=== PATIENT | male | born 1965 | race Caucasian/White ===

== ENCOUNTER 2024-05-21 10:20 | Emergency (ER) | payer OTHER, SELFPAY ==
[2024-05-21 10:23] VITALS: BP 127/80; PULSE 99; RESP 18; TEMP 36.6; O2SAT 99; BMI 31.3
--- NOTE | 2024-05-21 10:41 | ED.EYEPROB ---
HPI - Eye Problem General Chief complaint: Eye Problems Stated complaint: Right eye flashes of light Time Seen by Provider: 05/21/24 10:36 History of Present Illness HPI Narrative: Patient is a 59-year-old healthy gentleman who takes no medication but has history of ocular migraines who presents with 3 days of flashes of light in the right eye. In addition the flashes of light he has persistence of a streak in his vision on the right. He has not had any eye injuries. He has had no changes visual acuity. He has had no headaches no change in his ocular movements no other related symptoms he has had no similar symptoms previously. No problems in the left eye. Due to the duration of his symptoms and worsening over the last day comes emergency room for further evaluation. Related Data Home Medications ?Medication ?Instructions ?Recorded ?Confirmed No Known Home Medications 05/21/24 05/21/24 Allergies Allergy/AdvReac Type Severity Reaction Status Date / Time No Known Drug Allergies Allergy Verified 05/21/24 10:28 Review of Systems Status of ROS: Reports: 10 or more systems reviewed and unremarkable except as noted in History and below Exam Narrative: Exam Narrative: EXAM GENERAL: Patient appears comfortable and well. EYES: No scleral icterus. LYMPH: No supraclavicular or cervical lymphadenopathy. SKIN: Visible skin seen during exam normal or with benign process only. EXT: No dependent lower extremity pedal edema. HEART: Regular rate and rhythm with no murmurs, rubs, or gallops. LUNGS: Clear to auscultation bilaterally with no crackles or wheezes. ABD: Soft, non tender, non distended. PSYCH: Good eye contact, speech is not pressured. Const: Vital Signs, click to edit/add: Vital Signs - 24 hr 05/21/24 10:23 Temperature 97.8 F Pulse Rate [Pulse Oximeter] 99 Respiratory Rate 18 Blood Pressure [Ri ght Upper Arm] 127/80 Pulse Oximetry 99 Oxygen Delivery Me thod Room Air Course Vital Signs Vital signs: Initial Vital Signs Temperature 97.8 F 05/21/24 10:23 Temperature Source Temporal Artery Scan 05/21/24 10:23 Pulse Rate 99 05/21/24 10:23 Respiratory Rate 18 05/21/24 10:23 Blood Pressure 127/80 05/21/24 10:23 Blood Pressure Mean 95 05/21/24 10:23 Blood Pressure Position Sitting 05/21/24 10:23 Pulse Oximetry 99 05/21/24 10:23 Oxygen Delivery Method Room Air 05/21/24 10:23 Vital Signs Temperature 97.8 F 05/21/24 10:23 Pulse Rate 99 05/21/24 10:23 Respiratory Rate 18 05/21/24 10:23 Blood Pressure 127/80 05/21/24 10:23 Pulse Oximetry 99 05/21/24 10:23 Oxygen Delivery Method Room Air 05/21/24 10:23 Temperature 97.8 F 05/21/24 10:23 Pulse Rate 99 05/21/24 10:23 Respiratory Rate 18 05/21/24 10:23 Blood Pressure 127/80 05/21/24 10:23 Pulse Oximetry 99 05/21/24 10:23 Oxygen Delivery Method Room Air 05/21/24 10:23 MDM - Eye Problem MDM Narrative Medical decision making narrative: Patient seen and examined. I did speak with the [facility]. I do think that this be better case for them as a more quit meant and more experience with ocular issues. I am able to say that the patient is in good medical condition and I do not believe he needs any imaging. Did call over again and talk to the folks at [facility] and they are expecting him presently. Discharge Plan Discharge Clinical Impression: Alteration in vision Patient Disposition: Home, Self-Care Condition: Stable Additional Instructions: Proceed to [facility] in [place] for further evaluation. Activity Level: No Restrictions Discharge Diet: Regular Prescriptions: No Action No Known Home Medications Stand Alone Forms: [employer] Info Instructions
--- OUTSIDE RECORDS SUMMARY | 2024-05-21 10:54 | XMS_ITS | Clinical Summary ---
Author Organization [facility] Address [address] [place] [address] Care Team Providers Care Piano Refinisher Name Role Phone Unavailable Primary Care Provider Unavailabl e Source Comments Patient records contain information from all sites at [facility]. For routine questions regarding patient records, call [phone] during business hours, M-F 8:00 AM - 5:00 PM Central Time. Record requests for emergency care only can be directed to [phone] at any time.[facility] Allergies Active Allergy Reactions Criticality Noted Date Comments Clams Anaphylaxis Low 05/10/2019 Pollen Extracts Other (see comments) Low 05/10/2019 hayfever Medications No known medications Encounters Date Type Department Care Team Description 05/20/2024 Nurse Triage Department of Family Medicine, [facility], in [place], [place] [address] [place] [phone] Nivia Pickard R.N. Eye Problem from Last 3 Months Family History Medical History Relation Name Comments Cataracts Father Relation Name Status Comments Father Social History Tobacco Use Types Packs/Day Years Used Date Smoking Tobacco: Never Nutrition Answer Date Recorded Nutrition: EVOO Fat Source Unknown 05/29 Nutrition: Servings of Fruits/Vegetables per Day Not on file 05/29/2020 Dental Answer Date Recorded Dental: Regular Dentist Unknown 05/30/19 Sex and Gender Information Value Date Recorded Sex Assigned at Not on file Legal Sex Male 10:26 AM [employer] Gender Identity Not on file Sexual Orientation Not on file Last Filed Vital Signs Vital Sign Reading Time Taken Comments Blood Pressure 143/92 09/20/2015 4:34 PM CDT Pulse 97 09/20/2015 4:34 PM CDT Temperature - - Respiratory Rate 16 09/20/2015 4:28 PM CDT Oxygen Saturation - - Inhaled Oxygen Concentration - - Weight - - Height - - Body Mass Index - - Plan of Treatment Health Maintenance Due Date Last Done Comments CT Colonography 1963 Cologuard 1963 Colonoscopy 1963 Colorectal Cancer Screening 1963 FIT 1963 HIV Screening 1963 Hepatitis C Screening 1963 Pneumococcal vaccine (50+ years) (1 of 1 - PCV) 2013 Zoster Vaccines (1 of 2) 2013 RSV vaccine - (32-3 6 weeks) or 60+ years (1 - Risk 60-74 years 1-dose series) 2023 COVID-19 Vaccine (1 - 2023-2 5 season) 2023 Influenza Vaccine (#1) 2023 Depression Screening (Annual PHQ-2) 03/31/2024 Fasting Glucose for Diabetes Screening 05/26/2026 05/26/2023, 03/23/2023, 04/19/2022 Lipid (Cholesterol) Screening 04/19/2027 04/19/2022 DTaP,Tdap,and Td Vaccines (2 - Td or Tdap) 04/19/2032 04/19/2022 IPV Vaccines Aged Out No longer eligi ble based on patient's age to complete this topic Insurance [facility] [place] [address] [place] [id number]
--- OUTSIDE RECORDS SUMMARY | 2024-05-21 10:54 | XMS_ITS | Encounter Summary ---
Author Name [facility] [place] Organization [facility] [place] Address [address] [place] [id number] Support Name Relationship Address Phone PALMER GARNICAHA Next of Kin Unknown PALMER GARNICAHA Emergency Contact Unknown Insurance Providers: All historical and current Section Date Range: From patient's date of to the date document was created. This section includes the names of all active insurance providers for the patient. Insurance Provider Type of Coverage Plan Name Start of Policy Coverage End of Policy Coverage Group Number Member ID Insurance Provider's Telephone Number Policy Pritchett's Name Patient's Relationship to Policy Pritchett [place] PREFERRED PROVIDER ORGANIZAT ION (PPO) UMAIR [facility] Jun 30, 2015 [id number] [phone] LUCHO BARBER PATIENT [place] PREFERRED PROVIDER ORGANIZAT ION (PPO) [employer] Jun 30, 2015 [id number] [phone] LUCHO BARBER PATIENT [employer] PRESCRIPT ION RX PLAN Jun 30, 2015 [facility] [id number] LUCHO BARBER PATIENT Selected Encounter This section includes the information on record at [place] for the Encounter. Date/Time Encounter Type Encounter Description Reason Provider Source 2024 10:00 AM SELF CARE MNGMENT TRAINING PHYSICAL THERAPY ICD-10-CM M54.59 Other low back pain MICAELA MALLOY Encounter Template Text not used by [facility] Assessments - Encounter Diagnoses This section includes the primary and secondary diagnoses documented for the Encounter. Date/Time Primary/Secondary Diagnosis Diagnosis Name Provider Source May 18, 2024 09:43 AM PRIMARY Other low back pain MICAELA MALLOY [facility] May 18, 2024 09:43 AM SECONDARY Pain in left hip MICAELA MALLOY [facility] Encounter Notes: All associated encounter notes This section contains the clinical notes associated to the Encounter. Date/Time Encounter Note(s) Provider Source May 07, 2024 01:53 PM ADDENDUM: LOCAL TITLE: Addendum STANDARD TITLE: ADDENDUM DATE OF NOTE: MAY 07, 2024@13:53:45 ENTRY DATE: MAY 07, 2024@13:53:46 AUTHOR: TINY SUAREZ EXP COSIGNER: URGENCY: STATUS: COMPLETED PT eval and Neurosurgery notes reviewed. Patient comments to PT that his back pain is worse with driving, and therefore he feels he needs care in the community. Neurosurgery note comments he has noted when he is sitting in his car driving there is some numbness in the right lateral aspect of his call into the right foot. When he gets out of the car and he is standing this seems to dissipate. Neurosurgery also notes patient has declined a pain service consult and has declined neurology consult as he feels his symptoms are not severe. Patient is not drive time eligible for [facility] PT services. Due to above conflicting comments about patient's symptoms, would recommend trialing a few [facility] PT visits. Patient may also consider a hybrid model of [facility] and [facility] PT services. If therapist identifies that patient's low back pain symptoms are affecting his ability to participate in PT, then could consider Community [facility] PT. /rehan/ TINY SUAREZ DPT, FANNIE PHYSICAL THERAPIST Signed: 05/07/2024 14:08 Receipt Acknowledged By: 05/10/2024 13:09 /rehan/ Micaela Malloy DPT Doctor of Physical Therapy --- Original Document --- 05/06/24 PT-EVALUATION NOTE: PT tx: Moderate complexity evaluation 25 minutes, self-care 15 minutes PT dx: Chronic low back pain, left hip pain Evaluation Date: May # of VISITS: 1 # of CX/NS: 0 Informed verbal consent received for physical therapy evaluation and treatment. Relevant PMH/personal factors impacting rehab: Low back pain, 4th nerve palsy, bilateral lower extremity edema SUBJECTIVE: Chief Concern: Pt is a 59yo MALE presenting to PT for chronic lower back pain he has had most of my life. Denies any recent trauma. Describes stumbling at times due to his L leg. Vet strongly feels he should get community care as he states driving irritates his pain. He is 46-[address] time from nearest [facility] that offers PT. He reports I was told I had to see you before I get community care. He also reports an unwillingness to participate in [place] physical therapy unless its provided to him closer to his home. 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 He does not do any other physical activity as a result. Sleep: Difficult due to pain Red Flags: No personal history of cancer. Denies any UE or LE progressive weakness, unexplained weight loss, loss of bowel/bladder control, saddle anesthesia, acute gait changes, pain with rest, fevers, chills, infections. Patient's Goal: - strengthen my back RELEVANT IMAGING: Lumbar MRI 10/12/2023 (Per [facility], see report for full details) FINDINGS: Mild leftward lumbar curvature. The lumbar lordosis is preserved. No acute fracture. No T1 hypointense lesions. Normal conus terminates at L1-2. T12-L1: Mild disc degeneration. No spinal canal or neural foraminal narrowing. L1-2: Mild disc degeneration. No spinal canal or neural foraminal narrowing. L2-3: Worsening mild to moderate disc height loss. Posterior disc bulge. Mild facet arthropathy. No spinal canal or neural foraminal narrowing. L3-4: Worsening moderate disc height loss. Posterior disc bulge. Moderate right and mild left facet arthropathy. No spinal canal narrowing. Mild right without left neural from narrowing. L4-5: Mild retrolisthesis. Worsening advanced disc height loss. Type 2 degenerative signal changes. Posterior disc bulging and endplate spondylotic ridging. Moderate facet arthropathy. Mild spinal canal narrowing. Mild bilateral neural foraminal narrowing. L5-S1: Advanced disc degeneration and disc height loss. Mild to moderate vertebral body edema. Posterior disc bulging and endplate spondylotic ridging. Moderate facet arthropathy. No spinal canal narrowing. Moderately severe left without right neural foraminal narrowing. IMPRESSION 1. Multilevel lumbar spondylosis has progressed compared to the prior MRI. No spinal canal stenosis. 2. At L5-S1, moderately severe left neural foraminal stenosis. Mild-to- moderate discogenic vertebral body edema. Dictated by Don Joya MD @ 10/12/2023 9:29:51 AM OBJECTIVE: OBSERVATION: Vet is mostly pleasant and does not appear to be in acute pain or distress today. He does become slightly agitated when discussing community care. Gait: normal gait with no assistive devices, slight trunk flexion with mobility Transitional Movements: Modified independent with use of upper extremity with sit to stand Posture: Forward trunk flexion VITALS: Resting - BP: 157/92 - HR 88 - % O2: 99 *Vet states that he at time has high BP, that he is concerned about. [facility] most [facility] care [facility]. FOCUSED NEUROMUSCULAR EXAM: myotomes 5/5 B LEs, dermatomes intact to light touch/pin prick B LEs, deep tendon reflexes WNL and absent pathological reflexes RANGE OF MOTION: (* indicates pain)(% restricted of normal AROM) Standing Lumbar AROM: Flexion: knees * Extension: 25%* Sidebend: wnl R, 25%* Rotation: 25%* BL Quality of Motion: Hip PROM R L Flexion 120 120* IR 30 20* ER 30 30* LE STRENGTH:(_/5) LEFT RIGHT HIP Extension: 4+* 4+* Abduction: 4 4 Ext Rotation: 4+ 4+ Int Rotation: 4+ 4+ Of note, had a significant lower back pain response to strength testing during hip extension. He had an emotional response and very tearful. He was able to independently transfer to a chair and sat for 5-7 minutes with pain fully dissipating. He endorses frequent pain flare of of this kind often throughout his day. 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 PALPATION: Myofascial/Trigger Points: L3-5 lumbar paraspinal and posterolateral hip tenderness L>R. SEGMENTAL MOBILITY/JOINT PLAY: - Low back: L3-5 hypomobility with PA and L UPA with concordant pain - Hip: tenderness with end-range hip external rotation SPECIAL TESTS: Neurodynamics Right Left Seated Slump: - - Straight Leg Raise: - - Mobility Cait's - + Hamstring restriction + + Facet Mediated Pain Extension/Rotation: - + Sacroiliac (SIJ) Shaji Finger: - Sacral thrust: - Hip screen FADIR: - + YANG: - + Scour: - + PT INTERVENTIONS: risks/benefits reviewed and verbal consent obtained for interventions Self-care: -Lengthy discussion regarding community care, strongly feels he needs care near his home due to pain with driving. He states he will not be willing to participate in PT if he can't get care closer to home. He reports private insurance but does not want to use this. -Discussed BP management from a PT perspective. Offered to issue Vet BP cuff for self-monitoring at home but he declines. Advised him to make apt with non-[facility] primary care (where he gets his care managed), for further BP assessments, which he is agreeable to. -Education on self-management strategies and activity modifications including sleeping positions, joint protection strategies, frequent position changes -Lengthy discussion and education regarding lumbopelvic anatomy in relation to 's current impairments from a physical therapy perspective. RESPONSE TO TREATMENT/ASTERISK SIGNS Good overall. has significant lower back pain response with emotional response after hip extension strength testing (see above for full details). He reports having these types of sere breakthrough pains often throughout his day. Pain fully dissipated after brief sitting, back to baseline levels. He denies any red-flag symptoms (as stated above) pre and post session. He ambulates out of PT exam room without increased pain or distress. GOALS: defer at this time, see assessment ASSESSMENT: is a 59-year-old male presented physical therapy for chronic lower back and left-sided hip pain ongoing for many years without specific mechanism of injury or trauma. Exam findings most consistent with chronic low back pain secondary to mobility deficits with myofascial restrictions along left greater than right lumbar paraspinals. Hip pain also consistent with greater trochanteric pain syndrome with neural tension along the sciatic nerve distribution. Unremarkable neuromuscular exam without evidence of overt red flags today. Barriers to rehab include pain hypersensitivity as [place] had substantial low back pain response to strength testing of hip extensors (see above for full details). Pain dissipated within 5 minutes and he was back to baseline, describes this as a normal occurrence for him. He is also seeking community care, will follow-up with community care team for further guidance. BARRIERS TO REHAB: chronicity of pain, pain hypersensitivity REHAB POTENTIAL: fair CLINICAL PRESENTATION: evolving PLAN: [place] is currently seeking community care, but does not qualify based on drive time. Will cosign PT community care team for further guidance. Patient Education on Treatment Plan: PT role, POC, rehab expectations. Patient indicated readiness to learn, verbalizes understanding, agreement and satisfaction with the treatment plan. Patient provided informed consent to all treatments performed. Denies further questions. /rehan/ Micaela Malloy DPT Doctor of Physical Therapy Signed: 2024 13:44 2024 ADDENDUM STATUS: COMPLETED Vet strongly feels he should get PT in his community, stating drive time irritates his pain and reports a 4th nerve palsy. He is a 46-[address] time from nearest [facility] that offers PT. He also reports an unwillingness to participate in [facility] physical therapy unless its provided him closer to home. Cosigning PT community care team for further guidance. /rehan/ Micaela Malloy DPT Doctor of Physical Therapy Signed: 2024 13:47 Receipt Acknowledged By: * AWAITING SIGNATURE * JESUS PATEL 05/07/2024 14:09 /rehan/ TINY SUAREZ DPT, FANNIE PHYSICAL THERAPIST TINY SUAREZ [facility] 2024 01:46 PM ADDENDUM: LOCAL TITLE: Addendum STANDARD TITLE: ADDENDUM DATE OF NOTE: 2024@13:46:10 ENTRY DATE: 2024@13:46:11 AUTHOR: MICAELA MALLOY COSIGNER: URGENCY: STATUS: COMPLETED Vet strongly feels he should get PT in his community, stating drive time irritates his pain and reports a 4th nerve palsy. He is a 46-[address] time from nearest [facility] that offers PT. He also reports an unwillingness to participate in [facility] physical therapy unless its provided him closer to home. Cosigning PT community care team for further guidance. /es/ Micaela Malloy DPT Doctor of Physical Therapy Signed: 2024 13:47 Receipt Acknowledged By: 05/10/2024 14:28 /es/ JESUS PATEL DPT PHYSICAL THERAPIST 05/07/2024 14:09 /es/ TINY SUAREZ DPT, OCS PHYSICAL THERAPIST --- Original Document --- 05/06/24 PT-EVALUATION NOTE: PT tx: Moderate complexity evaluation 25 minutes, self-care 15 minutes PT dx: Chronic low back pain, left hip pain Evaluation Date: May # of VISITS: 1 # of CX/NS: 0 Informed verbal consent received for physical therapy evaluation and treatment. Relevant PMH/personal factors impacting rehab: Low back pain, 4th nerve palsy, bilateral lower extremity edema SUBJECTIVE: Chief Concern: Pt is a 59yo MALE presenting to PT for chronic lower back pain he has had most of my life. Denies any recent trauma. Describes stumbling at times due to his L leg. Vet strongly feels he should get community care as he states driving irritates his pain. He is 46-[address] time from nearest [facility] that offers PT. He reports I was told I had to see you before I get community care. He also reports an unwillingness to participate in [place] physical therapy unless its provided to him closer to his home. 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 He does not do any other physical activity as a result. Sleep: Difficult due to pain Red Flags: No personal history of cancer. Denies any UE or LE progressive weakness, unexplained weight loss, loss of bowel/bladder control, saddle anesthesia, acute gait changes, pain with rest, fevers, chills, infections. Patient's Goal: - strengthen my back RELEVANT IMAGING: Lumbar MRI 10/12/2023 (Per [facility], see report for full details) FINDINGS: Mild leftward lumbar curvature. The lumbar lordosis is preserved. No acute fracture. No T1 hypointense lesions. Normal conus terminates at L1-2. T12-L1: Mild disc degeneration. No spinal canal or neural foraminal narrowing. L1-2: Mild disc degeneration. No spinal canal or neural foraminal narrowing. L2-3: Worsening mild to moderate disc height loss. Posterior disc bulge. Mild facet arthropathy. No spinal canal or neural foraminal narrowing. L3-4: Worsening moderate disc height loss. Posterior disc bulge. Moderate right and mild left facet arthropathy. No spinal canal narrowing. Mild right without left neural from narrowing. L4-5: Mild retrolisthesis. Worsening advanced disc height loss. Type 2 degenerative signal changes. Posterior disc bulging and endplate spondylotic ridging. Moderate facet arthropathy. Mild spinal canal narrowing. Mild bilateral neural foraminal narrowing. L5-S1: Advanced disc degeneration and disc height loss. Mild to moderate vertebral body edema. Posterior disc bulging and endplate spondylotic ridging. Moderate facet arthropathy. No spinal canal narrowing. Moderately severe left without right neural foraminal narrowing. IMPRESSION 1. Multilevel lumbar spondylosis has progressed compared to the prior MRI. No spinal canal stenosis. 2. At L5-S1, moderately severe left neural foraminal stenosis. Mild-to- moderate discogenic vertebral body edema. Dictated by Don Joya MD @ 10/12/2023 9:29:51 AM OBJECTIVE: OBSERVATION: [place] is mostly pleasant and does not appear to be in acute pain or distress today. He does become slightly agitated when discussing community care. Gait: normal gait with no assistive devices, slight trunk flexion with mobility Transitional Movements: Modified independent with use of upper extremity with sit to stand Posture: Forward trunk flexion VITALS: Resting - BP: 157/92 - HR 88 - % O2: 99 *Shannan states that he at time has high BP, that he is concerned about. [facility] most [facility]. FOCUSED NEUROMUSCULAR EXAM: myotomes 5/5 B LEs, dermatomes intact to light touch/pin prick B LEs, deep tendon reflexes WNL and absent pathological reflexes RANGE OF MOTION: (* indicates pain)(% restricted of normal AROM) Standing Lumbar AROM: Flexion: knees * Extension: 25%* Sidebend: wnl R, 25%* Rotation: 25%* BL Quality of Motion: Hip PROM R L Flexion 120 120* IR 30 20* ER 30 30* LE STRENGTH:(_/5) LEFT RIGHT HIP Extension: 4+* 4+* Abduction: 4 4 Ext Rotation: 4+ 4+ Int Rotation: 4+ 4+ Of note, [place] had a significant lower back pain response to strength testing during hip extension. He had an emotional response and very tearful. He was able to independently transfer to a chair and sat for 5-7 minutes with pain fully dissipating. He endorses frequent pain flare of of this kind often throughout his day. 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 PALPATION: Myofascial/Trigger Points: L3-5 lumbar paraspinal and posterolateral hip tenderness L>R. SEGMENTAL MOBILITY/JOINT PLAY: - Low back: L3-5 hypomobility with PA and L UPA with concordant pain - Hip: tenderness with end-range hip external rotation SPECIAL TESTS: Neurodynamics Right Left Seated Slump: - - Straight Leg Raise: - - Mobility Cait's - + Hamstring restriction + + Facet Mediated Pain Extension/Rotation: - + Sacroiliac (SIJ) Shaji Finger: - Sacral thrust: - Hip screen FADIR: - + YANG: - + Scour: - + PT INTERVENTIONS: risks/benefits reviewed and verbal consent obtained for interventions Self-care: -Lengthy discussion regarding community care, [place] strongly feels he needs care near his home due to pain with driving. He states he will not be willing to participate in PT if he can't get care closer to home. He reports private insurance but does not want to use this. -Discussed BP management from a PT perspective. Offered to issue Vet BP cuff for self-monitoring at home but he declines. Advised him to make apt with non-[facility] primary care (where he gets his care managed), for further BP assessments, which he is agreeable to. -Education on self-management strategies and activity modifications including sleeping positions, joint protection strategies, frequent position changes -Lengthy discussion and education regarding lumbopelvic anatomy in relation to 's current impairments from a physical therapy perspective. RESPONSE TO TREATMENT/ASTERISK SIGNS Good overall. has significant lower back pain response with emotional response after hip extension strength testing (see above for full details). He reports having these types of sere breakthrough pains often throughout his day. Pain fully dissipated after brief sitting, back to baseline levels. He denies any red-flag symptoms (as stated above) pre and post session. He ambulates out of PT exam room without increased pain or distress. GOALS: defer at this time, see assessment ASSESSMENT: [place] is a 59-year-old male presented physical therapy for chronic lower back and left-sided hip pain ongoing for many years without specific mechanism of injury or trauma. Exam findings most consistent with chronic low back pain secondary to mobility deficits with myofascial restrictions along left greater than right lumbar paraspinals. Hip pain also consistent with greater trochanteric pain syndrome with neural tension along the sciatic nerve distribution. Unremarkable neuromuscular exam without evidence of overt red flags today. Barriers to rehab include pain hypersensitivity as had substantial low back pain response to strength testing of hip extensors (see above for full details). Pain dissipated within 5 minutes and he was back to baseline, describes this as a normal occurrence for him. He is also seeking community care, will follow-up with community care team for further guidance. BARRIERS TO REHAB: chronicity of pain, pain hypersensitivity REHAB POTENTIAL: fair CLINICAL PRESENTATION: evolving PLAN: is currently seeking community care, but does not qualify based on drive time. Will cosign PT community care team for further guidance. Patient Education on Treatment Plan: PT role, POC, rehab expectations. Patient indicated readiness to learn, verbalizes understanding, agreement and satisfaction with the treatment plan. Patient provided informed consent to all treatments performed. Denies further questions. /rehan/ Micaela Malloy DPT Doctor of Physical Therapy Signed: 2024 13:44 05/07/2024 ADDENDUM STATUS: COMPLETED PT eval and Neurosurgery notes reviewed. Patient comments to PT that his back pain is worse with driving, and therefore he feels he needs care in the community. Neurosurgery note comments he has noted when he is sitting in his car driving there is some numbness in the right lateral aspect of his call into the right foot. When he gets out of the car and he is standing this seems to dissipate. Neurosurgery also notes patient has declined a pain service consult and has declined neurology consult as he feels his symptoms are not severe. Patient is not drive time eligible for [facility] PT services. Due to above conflicting comments about patient's symptoms, would recommend trialing a few [facility] PT visits. Patient may also consider a hybrid model of [facility] and [facility] PT services. If therapist identifies that patient's low back pain symptoms are affecting his ability to participate in PT, then could consider [facility] PT. /rehan/ TINY SUAREZ DPT, OCS PHYSICAL THERAPIST Signed: 05/07/2024 14:08 Receipt Acknowledged By: 05/10/2024 13:09 /rehan/ Micaela Malloy DPT Doctor of Physical Therapy MICAELA MALLOY [facility] 2024 07:41 AM PHYSICAL THERAPY I NITIAL EVALUATION NOTE: LOCAL TITLE: PT-EVALUATION NOTE STANDARD TITLE: PHYSICAL THERAPY INITIAL EVALUATION NOTE DATE OF NOTE: 2024@07:41 ENTRY DATE: 2024@07:41:23 AUTHOR: MICAELA MALLOY COSIGNER: URGENCY: STATUS: COMPLETED PT-EVALUATION NOTE Has ADDENDA PT tx: Moderate complexity evaluation 25 minutes, self-care 15 minutes PT dx: Chronic low back pain, left hip pain Evaluation Date: May # of VISITS: 1 # of CX/NS: 0 Informed verbal consent received for physical therapy evaluation and treatment. Relevant PMH/personal factors impacting rehab: Low back pain, 4th nerve palsy, bilateral lower extremity edema SUBJECTIVE: Chief Concern: Pt is a 59yo MALE presenting to PT for chronic lower back pain he has had most of my life. Denies any recent trauma. Describes stumbling at times due to his L leg. Vet strongly feels he should get community care as he states driving irritates his pain. He is 46-[address] time from nearest [facility] that offers PT. He reports I was told I had to see you before I get community care. He also reports an unwillingness to participate in [facility] unless its provided to him closer to his home. 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 He does not do any other physical activity as a result. Sleep: Difficult due to pain Red Flags: No personal history of cancer. Denies any UE or LE progressive weakness, unexplained weight loss, loss of bowel/bladder control, saddle anesthesia, acute gait changes, pain with rest, fevers, chills, infections. Patient's Goal: - strengthen my back RELEVANT IMAGING: Lumbar MRI 10/12/2023 (Per [facility], see report for full details) FINDINGS: Mild leftward lumbar curvature. The lumbar lordosis is preserved. No acute fracture. No T1 hypointense lesions. Normal conus terminates at L1-2. T12-L1: Mild disc degeneration. No spinal canal or neural foraminal narrowing. L1-2: Mild disc degeneration. No spinal canal or neural foraminal narrowing. L2-3: Worsening mild to moderate disc height loss. Posterior disc bulge. Mild facet arthropathy. No spinal canal or neural foraminal narrowing. L3-4: Worsening moderate disc height loss. Posterior disc bulge. Moderate right and mild left facet arthropathy. No spinal canal narrowing. Mild right without left neural from narrowing. L4-5: Mild retrolisthesis. Worsening advanced disc height loss. Type 2 degenerative signal changes. Posterior disc bulging and endplate spondylotic ridging. Moderate facet arthropathy. Mild spinal canal narrowing. Mild bilateral neural foraminal narrowing. L5-S1: Advanced disc degeneration and disc height loss. Mild to moderate vertebral body edema. Posterior disc bulging and endplate spondylotic ridging. Moderate facet arthropathy. No spinal canal narrowing. Moderately severe left without right neural foraminal narrowing. IMPRESSION 1. Multilevel lumbar spondylosis has progressed compared to the prior MRI. No spinal canal stenosis. 2. At L5-S1, moderately severe left neural foraminal stenosis. Mild-to- moderate discogenic vertebral body edema. Dictated by Don Joya MD @ 10/12/2023 9:29:51 AM OBJECTIVE: OBSERVATION: Vet is mostly pleasant and does not appear to be in acute pain or distress today. He does become slightly agitated when discussing community care. Gait: normal gait with no assistive devices, slight trunk flexion with mobility Transitional Movements: Modified independent with use of upper extremity with sit to stand Posture: Forward trunk flexion VITALS: Resting - BP: 157/92 - HR 88 - % O2: 99 *Vet states that he at time has high BP, that he is concerned about. [facility] FOCUSED NEUROMUSCULAR EXAM: myotomes 5/5 B LEs, dermatomes intact to light touch/pin prick B LEs, deep tendon reflexes WNL and absent pathological reflexes RANGE OF MOTION: (* indicates pain)(% restricted of normal AROM) Standing Lumbar AROM: Flexion: knees * Extension: 25%* Sidebend: wnl R, 25%* Rotation: 25%* BL Quality of Motion: Hip PROM R L Flexion 120 120* IR 30 20* ER 30 30* LE STRENGTH:(_/5) LEFT RIGHT HIP Extension: 4+* 4+* Abduction: 4 4 Ext Rotation: 4+ 4+ Int Rotation: 4+ 4+ Of note, [place] had a significant lower back pain response to strength testing during hip extension. He had an emotional response and very tearful. He was able to independently transfer to a chair and sat for 5-7 minutes with pain fully dissipating. He endorses frequent pain flare of of this kind often throughout his day. 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 PALPATION: Myofascial/Trigger Points: L3-5 lumbar paraspinal and posterolateral hip tenderness L>R. SEGMENTAL MOBILITY/JOINT PLAY: - Low back: L3-5 hypomobility with PA and L UPA with concordant pain - Hip: tenderness with end-range hip external rotation SPECIAL TESTS: Neurodynamics Right Left Seated Slump: - - Straight Leg Raise: - - Mobility Cait's - + Hamstring restriction + + Facet Mediated Pain Extension/Rotation: - + Sacroiliac (SIJ) Shaji Finger: - Sacral thrust: - Hip screen FADIR: - + YANG: - + Scour: - + PT INTERVENTIONS: risks/benefits reviewed and verbal consent obtained for interventions Self-care: -Lengthy discussion regarding community care, strongly feels he needs care near his home due to pain with driving. He states he will not be willing to participate in PT if he can't get care closer to home. He reports private insurance but does not want to use this. -Discussed BP management from a PT perspective. Offered to issue Vet BP cuff for self-monitoring at home but he declines. Advised him to make apt with non-[facility] primary care (where he gets his care managed), for further BP assessments, which he is agreeable to. -Education on self-management strategies and activity modifications including sleeping positions, joint protection strategies, frequent position changes -Lengthy discussion and education regarding lumbopelvic anatomy in relation to 's current impairments from a physical therapy perspective. RESPONSE TO TREATMENT/ASTERISK SIGNS Good overall. has significant lower back pain response with emotional response after hip extension strength testing (see above for full details). He reports having these types of sere breakthrough pains often throughout his day. Pain fully dissipated after brief sitting, back to baseline levels. He denies any red-flag symptoms (as stated above) pre and post session. He ambulates out of PT exam room without increased pain or distress. GOALS: defer at this time, see assessment ASSESSMENT: [place] is a 59-year-old male presented physical therapy for chronic lower back and left-sided hip pain ongoing for many years without specific mechanism of injury or trauma. Exam findings most consistent with chronic low back pain secondary to mobility deficits with myofascial restrictions along left greater than right lumbar paraspinals. Hip pain also consistent with greater trochanteric pain syndrome with neural tension along the sciatic nerve distribution. Unremarkable neuromuscular exam without evidence of overt red flags today. Barriers to rehab include pain hypersensitivity as [place] had substantial low back pain response to strength testing of hip extensors (see above for full details). Pain dissipated within 5 minutes and he was back to baseline, describes this as a normal occurrence for him. He is also seeking community care, will follow-up with community care team for further guidance. BARRIERS TO REHAB: chronicity of pain, pain hypersensitivity REHAB POTENTIAL: fair CLINICAL PRESENTATION: evolving PLAN: [place] is currently seeking community care, but does not qualify based on drive time. Will cosign PT community care team for further guidance. Patient Education on Treatment Plan: PT role, POC, rehab expectations. Patient indicated readiness to learn, verbalizes understanding, agreement and satisfaction with the treatment plan. Patient provided informed consent to all treatments performed. Denies further questions. /rehan/ Micaela Malloy DPT Doctor of Physical Therapy Signed: 2024 13:44 2024 ADDENDUM STATUS: COMPLETED Vet strongly feels he should get PT in his community, stating drive time irritates his pain and reports a 4th nerve palsy. He is a 46-[address] time from nearest [facility] that offers PT. He also reports an unwillingness to participate in [facility] physical therapy unless its provided him closer to home. Cosigning PT community care team for further guidance. /rehan/ Micaela Malloy DPT Doctor of Physical Therapy Signed: 2024 13:47 Receipt Acknowledged By: 05/10/2024 14:28 /rehan/ JESUS PATEL DPT PHYSICAL THERAPIST 05/07/2024 14:09 /rehan/ TINY SUAREZ DPT, OCS PHYSICAL THERAPIST 05/07/2024 ADDENDUM STATUS: COMPLETED PT eval and Neurosurgery notes reviewed. Patient comments to PT that his back pain is worse with driving, and therefore he feels he needs care in the community. Neurosurgery note comments he has noted when he is sitting in his car driving there is some numbness in the right lateral aspect of his call into the right foot. When he gets out of the car and he is standing this seems to dissipate. Neurosurgery also notes patient has declined a pain service consult and has declined neurology consult as he feels his symptoms are not severe. Patient is not drive time eligible for Community Care PT services. Due to above conflicting comments about patient's symptoms, would recommend trialing a few [facility] PT visits. Patient may also consider a hybrid model of F2F and [facility] PT services. If therapist identifies that patient's low back pain symptoms are affecting his ability to participate in PT, then could consider Community Care PT. /rehan/ TINY SUAREZ DPT, FANNIE PHYSICAL THERAPIST Signed: 05/07/2024 14:08 Receipt Acknowledged By: 05/10/2024 13:09 /rehan/ Micaela Malloy DPT Doctor of Physical Therapy 05/11/2024 ADDENDUM STATUS: COMPLETED Called Vet x 3 with no answer. Left HIPAA sensitive voicemail reiterating community care team's assessment/plan. He was given PT number to call back and schedule appointment with [facility] PT at his desired location ([place] or [facility]). He was also given the patient advocate's number should he need it. /lori Malloy DPT Doctor of Physical Therapy Signed: 05/11/2024 07:18 MICAELA MALLOY [facility]
--- OUTSIDE RECORDS SUMMARY | 2024-05-21 10:54 | XMS_ITS | Encounter Summary ---
Author Name [facility] [place] [facility] [place] Address [address] [place] [id number] Support Name Relationship Address Phone PALMER GARNICAHA Next of Kin Unknown NAHUN CARLY Emergency Contact Unknown [phone] Insurance Providers: All historical and current Section [...] [place] PREFERRED PROVIDER ORGANIZAT ION (PPO) UMAIR Tenrox Jun 30, 2015 [id number] [phone] LUCHO SAHNI PATIENT [place] PREFERRED PROVIDER ORGANIZAT ION (PPO) UMAIR Tenrox Jun 30, 2015 [id number] [phone] LUCHO SAHNI PATIENT [employer] ([employer]) PRESCRIPT ION RX PLAN Jun 30, 2015 [id number] LUCHO SAHNI PATIENT Selected Encounter This section includes the information on record at [place] for the Encounter. Date/Time Encounter Type Encounter Description Reason Provider Source Dec 03, 2023 10:00 AM OFF/OP CONSLTJ NEW/EST HI 55 NEUROSURGERY ICD-10-CM M54.51 Vertebrogenic low back pain ABDIFATAH NAJERA E Encounter Template Text not used by [place] Assessments - Encounter Diagnoses This section includes the primary and secondary diagnoses documented for the Encounter. Date/Time Primary/Secondary Diagnosis Diagnosis Name Provider Source Dec 12, 2023 08:27 AM PRIMARY Vertebrogenic low back pain ABDIFATAH NAJERA [facility] Dec 12, 2023 08:27 AM SECONDARY Paresthesia of skin ABDIFATAH NAJERA [facility] Plan of Treatment: Future Appointments (+ 6 months) and Future Tests (+/- 45 days) The Plan of Treatment section includes future care activities for the patient from all [place] treatmentfacilities. This section includes future appointments and future orders which are active, pending or scheduled. Future Appointments This section includes appointments that were scheduled to occur 6 months from the date of the Encounter, up to a maximum of 20 appointments. The data comes from all [place] treatment facilities. Appointment Date/Time Appointment Type Appointme nt Facility Name 2024 10:00 AM AMBULATORY - RE[facility]AB [facility]IC[facility] Encounter Notes: All associated encounter notes This section contains the clinical notes associated to the Encounter. Date/Time Encounter Note(s) Provider Source Dec 06, 2023 11:22 AM ADDENDUM: LOCAL TITLE: Addendum STANDARD TITLE: ADDENDUM DATE OF NOTE: DEC 06, 2023@11:22:16 ENTRY DATE: DEC 06, 2023@11:22:18 AUTHOR: VERENA WETZEL COSIGNER: URGENCY: STATUS: COMPLETED Above note has been reviewed by this screen writer (physician advisor for the [facility]). This screen writer will respectfully request that [facility] send copy of above note, via secure pathway, to local PCP that pt sees under [place] consult # [id number]. This screen writer is appreciative. /rehan/ VERENA WETZEL MD STAFF PHYSICIAN Signed: 12/06/2023 11:23 Receipt Acknowledged By: 12/08/2023 08:30 /rehan/ [facility] --- Original Document --- 12/03/23 NEUROSURGERY CONSULT: Impression/Plan: 1. Chronic low back pain 2. Positional right lower extremity paresthesias new since August 2023 Anurag Sahni is a 58-year-old male who has a chief complaint of: Chief complaint: Chronic back pain with newer right lateral call and foot numbness (positional) For many years patient has been experiencing chronic low back pain that seems to involve the upper portion of the right buttock there is and has not been any radiation down the right or left extremity. He has managed this with activity modification and qzjc-qmg-rigwdzs measures. In August 2023, he has noted that his symptoms have slightly changed. Along with the chronic low back pain he has noted when he is sitting in his car driving there is some numbness in the right lateral aspect of his call into the right foot. When he gets out of the car and he is standing this seems to dissipate. At times, he does feel that his lower extremities are weak but has not fallen. This has been chronic. He denies any bowel or bladder changes or weakness other than described above. We have reviewed imaging and discussed with patient the findings. The chronic low back pain can be explained by the facet arthropathy noted. We recommended the pain service to assist with treating rather than surgical intervention as this is oftentimes not helpful. In regards to the right lower extremity paresthesias, this cannot be explained fully from the lumbar MRI. Patient has stenosis noted on the left sided L5-S1 not the right leg. We have recommended a neurology consultation for the paresthesias and perceived weakness that he has had from time to time. Patient has declined a pain service consult and has declined neurology consult as he feels his symptoms are not severe. We did explain to the patient there could be another process that has developed that is not explained by that from the MRI that neurology could be helpful. He has decided to follow-up with his primary care provider and if additional evaluation is wanted he will request this from his primary care provider. In the event he does request this from the primary care provider it may be helpful to have bilateral lower extremity EMGs performed. Gia Najera APRN, AIRPLANE ELECTRICAL REPAIRER Total time: 60 minutes History of Present Illness: Anurag Sahni is a 58-year-old male who has been referred to neurosurgery for evaluation. Chief complaint: Chronic back pain with newer right lateral call and foot numbness (positional) For many years patient has been experiencing chronic low back pain that seems to involve the upper portion of the right buttock there is and has not been any radiation down the right or left extremity. He has managed this with activity modification and recx-zwv-galciwh measures. In August 2023, he has noted that his symptoms have slightly changed. Along with the chronic low back pain he has noted when he is sitting in his car driving there is some numbness in the right lateral aspect of his call into the right foot. When he gets out of the car and he is standing this seems to dissipate. At times, he does feel that his lower extremities are weak but has not fallen. This has been chronic. He denies any bowel or bladder changes or weakness other than described above. Imaging: Lumbar MRI outside imaging (October 12, 2023) performed at [facility] Comparison MRI lumbar spine 11/10/2009 Impression per radiologist report: 1. Multilevel lumbar spondylosis has progressed compared to the prior MRI. No spinal canal stenosis 2. At L5-S1, moderately severe left neuroforaminal stenosis. Mild to moderate discogenic vertebral body edema. Exam: General: NAD, pleasant, cooperative MENTAL STATUS: AAOx3, memory intact, fund of knowledge appropriate MOTOR: RUE: 5/5 deltoid able to abduct overhead 5/5 bicep 5/5 tricep 5/5 wrist extensor; 5/5 wrist flexor. Supervisor Stitching Department 5/5, Interosseous 5/5 LUE: 5/5 deltoid able to abduct overhead 5/5 bicep 5/5 tricep 5/5 wrist extensor; 5/5 wrist flexor. Supervisor Stitching Department 5/5, Interosseous 5/5 RLE: 5/5 iliopsoas 5/5 quadricep 5/5 hamstring 5/5 ankle dorsi flexion 5/5 ankle plantar flexion 5/5 EHL LLE: 5/5 iliapsoas 5/5 quadricep 5/5 hamstring 5/5 ankle dorsi flexion 5/5 ankle plantar flexion 5/5 EHL REFLEXES: 2+ bilateral bicep, tricep, brachioradialis, patellar, ankle Downgoing toes bilateral, no Yusuf's, no clonus SENSORY: Upper and lower extremies intact with light touch GAIT/STATION:Nonantalgic gait, able to walk on tip toes, able to walk on heels /rehan/ GIA NAJERA NP Signed: 12/03/2023 12:13 VERENA WETZEL [facility] Dec 03, 2023 12:03 PM NEUROSURGERY CONSU LT: LOCAL TITLE: NEUROSURGERY CONSULT STANDARD TITLE: NEUROSURGERY CONSULT DATE OF NOTE: DEC 03, 2023@12:03 ENTRY DATE: DEC 03, 2023@12:03:33 AUTHOR: GIA NAJERA EXP COSIGNER: URGENCY: STATUS: COMPLETED NEUROSURGERY CONSULT Has ADDENDA Impression/Plan: 1. Chronic low back pain 2. Positional right lower extremity paresthesias new since August 2023 Anurag Sahni is a 58-year-old male who has a chief complaint of: Chief complaint: Chronic back pain with newer right lateral call and foot numbness (positional) For many years patient has been experiencing chronic low back pain that seems to involve the upper portion of the right buttock there is and has not been any radiation down the right or left extremity. He has managed this with activity modification and pjia-bco-dmpuvyz measures. In August 2023, he has noted that his symptoms have slightly changed. Along with the chronic low back pain he has noted when he is sitting in his car driving there is some numbness in the right lateral aspect of his call into the right foot. When he gets out of the car and he is standing this seems to dissipate. At times, he does feel that his lower extremities are weak but has not fallen. This has been chronic. He denies any bowel or bladder changes or weakness other than described above. We have reviewed imaging and discussed with patient the findings. The chronic low back pain can be explained by the facet arthropathy noted. We recommended the pain service to assist with treating rather than surgical intervention as this is oftentimes not helpful. In regards to the right lower extremity paresthesias, this cannot be explained fully from the lumbar MRI. Patient has stenosis noted on the left sided L5-S1 not the right leg. We have recommended a neurology consultation for the paresthesias and perceived weakness that he has had from time to time. Patient has declined a pain service consult and has declined neurology consult as he feels his symptoms are not severe. We did explain to the patient there could be another process that has developed that is not explained by that from the MRI that neurology could be helpful. He has decided to follow-up with his primary care provider and if additional evaluation is wanted he will request this from his primary care provider. In the event he does request this from the primary care provider it may be helpful to have bilateral lower extremity EMGs performed. Gia Najera APRN, AIRPLANE ELECTRICAL REPAIRER Total time: 60 minutes History of Present Illness: Anurag Sahni is a 58-year-old male who has been referred to neurosurgery for evaluation. Chief complaint: Chronic back pain with newer right lateral call and foot numbness (positional) For many years patient has been experiencing chronic low back pain that seems to involve the upper portion of the right buttock there is and has not been any radiation down the right or left extremity. He has managed this with activity modification and lsar-emn-wewgsit measures. In August 2023, he has noted that his symptoms have slightly changed. Along with the chronic low back pain he has noted when he is sitting in his car driving there is some numbness in the right lateral aspect of his call into the right foot. When he gets out of the car and he is standing this seems to dissipate. At times, he does feel that his lower extremities are weak but has not fallen. This has been chronic. He denies any bowel or bladder changes or weakness other than described above. Imaging: Lumbar MRI outside imaging (October 12, 2023) performed at [facility] Comparison MRI lumbar spine 11/10/2009 Impression per radiologist report: 1. Multilevel lumbar spondylosis has progressed compared to the prior MRI. No spinal canal stenosis 2. At L5-S1, moderately severe left neuroforaminal stenosis. Mild to moderate discogenic vertebral body edema. Exam: General: NAD, pleasant, cooperative MENTAL STATUS: AAOx3, memory intact, fund of knowledge appropriate MOTOR: RUE: 5/5 deltoid able to abduct overhead 5/5 bicep 5/5 tricep 5/5 wrist extensor; 5/5 wrist flexor. Supervisor Stitching Department 5/5, Interosseous 5/5 LUE: 5/5 deltoid able to abduct overhead 5/5 bicep 5/5 tricep 5/5 wrist extensor; 5/5 wrist flexor. Supervisor Stitching Department 5/5, Interosseous 5/5 RLE: 5/5 iliopsoas 5/5 quadricep 5/5 hamstring 5/5 ankle dorsi flexion 5/5 ankle plantar flexion 5/5 EHL LLE: 5/5 iliapsoas 5/5 quadricep 5/5 hamstring 5/5 ankle dorsi flexion 5/5 ankle plantar flexion 5/5 EHL REFLEXES: 2+ bilateral bicep, tricep, brachioradialis, patellar, ankle Downgoing toes bilateral, no Yusuf's, no clonus SENSORY: Upper and lower extremies intact with light touch GAIT/STATION:Nonantalgic gait, able to walk on tip toes, able to walk on heels /rehan/ GIA NAJERA NP Signed: 12/03/2023 12:13 12/06/2023 ADDENDUM STATUS: COMPLETED Above note has been reviewed by this screen writer (physician advisor for the [facility]). This screen writer will respectfully request that [facility] send copy of above note, via secure pathway, to local PCP that pt sees under [facility] consult # [id number]. This screen writer is appreciative. /rehan/ VERENA WETZEL MD STAFF PHYSICIAN Signed: 12/06/2023 11:23 Receipt Acknowledged By: * AWAITING SIGNATURE * MANUEL LUCIANO JENIFER L [facility]
--- OUTSIDE RECORDS SUMMARY | 2024-05-21 10:54 | XMS_ITS | Clinical Summary ---
Author Organization [employer] [facility] Address [address] [place] [address] Care Team Providers Care Roll Over Press Operator Name Role Phone Di Thornton DO Primary Care Provider Allergies Active Allergy Reactions Criticality Noted Date Comments Clams Anaphylaxis High 05/10/2019 Pollen Extracts *Unknown Low 05/10/2019 hayfever Medications Graduated Compression StockingsIndica tions:Varicose veins of both lower extremities with pain,Chronic deep vein thrombosis (DVT) of other vein of right lower extremity (HC) 20-30 mm/Hg thigh high compression stockings - Venous insufficiency 8 Packet 3 Active Graduated Compression StockingsIndica tions:Varicose veins of both lower extremities with pain For personal use. Length: thigh Strength: 20-30 mmHg Circumference in cm: For thigh: Ankle 27.5 cm, Calf 42.5 cm, Thigh 49.5 cm, Thigh to Ankle length 30.5 cm. 1 Packet 4 Active Active Problems Problem Noted Date Diagnosed Date Vertical strabismus, right eye 01/05/2024 Vertebrogenic low back pain 01/05/2024 Fourth (trochlear) nerve palsy, right eye 2023 Colonoscopy refused 12/02/2014 Bilateral edema of lower extremity 11/15/2014 Hyperpigmentation of skin 11/15/2014 Loss of hair 11/15/2014 Amaurosis fugax 11/15/2014 Immunizations Name Administration Dates Next Due Tdap 04/19/2022 Family History Medical History Relation Name Comments Heart Disease Father CHF Cancer Mother ?lymph nodes Diabetes Mother Relation Name Status Comments Father Mother Social History Tobacco Use Types Packs/Day Years Used Date Smoking Tobacco: Never Smokeless Tobacco: Never Alcohol Use Standard Drinks/Week Comments No 0 (1 standard drink = 0.6 oz pur e alcohol) PHQ-2 Answer Date Recorded PHQ-2 TOTAL SCORE 0 04/19/2022 Social Connections Answer Date Recorded Frequency of Communication with Friends and Fami ly Not on file 03/31/2021 Financial Resource Strain Answer Date R ecorded Difficulty of Paying Living Expenses Not on file 03/31/2021 Difficulty of Paying Living Expenses Not on file 03/31/2021 Interpersonal Safety Answer Date Record ed Are you being hit, kicked, p ushed or yelled at (see row info)? 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 on file Not on file Not on file Obstetrics History Last Filed Vital Signs Vital Sign Reading Time Taken Comments Blood Pressure 132/80 09/19/2023 9:04 AM CDT Pulse 76 09/19/2023 9:04 AM CDT Temperature 36.7 C (98 F) 08/03/2023 12:45 PM CDT Respiratory Rate 16 08/03/2023 2:20 PM CDT Oxygen Saturation 96% 08/03/2023 2:20 PM CDT Inhaled Oxygen Concentration - - Weight 88.5 kg (195 lb 3.2 oz) 09/19/2023 9:04 A M CDT Height 172.7 cm (5' 8) 08/03/2023 12:45 PM CDT Body Mass Index 29.68 08/03/2023 12:45 PM CDT Plan of Treatment Health Maintenance Due Date Last Done Comments HIV for age 15-65 1978 Hepatitis C screening for age 18-79 1981 Pneumococcal series for age 50+ (1 of 1 - PCV) 2013 Zoster (shingles) series for age 50+ (1 of 2) 2013 Depression screening for age 12+ 04/19/2023 04/19/19 23, 09/12/2020 Fecal testing non-DNA (FIT,F OBT,iFOBT) for age 45-75 04/29/2023 04/29/2022 BMI (ht and wt on same day) for age 18+ 05/21/2023 0 05/21/2022, 04/19/2022 COVID-19 vaccine series ( - 2023- season) 2023 Influenza for age 50-64 11/30/2023 Lipids for age 45-75 04/19/2027 04/19/2022, 11/16/19 Tetanus booster 04/19/2032 04/19/2022 RSV vaccine for adults or pr egnancy (1 - 1-dose 75+ series) 2038 Tdap Completed 04/19/2022 Procedures Procedure Name Priority Date/Time Associated Diagnosis Comments OCCULT BLOOD IFOBT STOOL Routine 04/29/2022 8:20 PM PSYCH THERAPIST Screening for colon cancer LC LIPID PANEL AND CHOL/HDL RATIO Routine 04/19/2022 11:58 AM PSYCH THERAPIST Screening cholesterol level from Last 3 Months or Most Recently Relevant to Health Maintenance Results * OCCULT BLOOD IFOBT STOOL (04/29/2022 8:20 PM PSYCH THERAPIST) STOOL BLOOD ,IFOBT Negative Negative 05/03/2022 1:37 PM PSYCH THERAPIST [facility] Stool STOOL SPECIMEN / Unknown Non-Blood / Unknown 04/29/2022 8:20 PM PSYCH THERAPIST 05/02/2022 8:20 PM PSYCH THERAPIST Di Thornton DO LABORATORY Final Result [facility] [address] [place] [address], [place] [phone] * (ABNORMAL) LC LIPID PANEL AND CHOL/HDL RATIO (04/19/2022 11:58 AM PSYCH THERAPIST) Cholesterol, Total 172 100 - 199 mg/dL 04/22/2022 11:06 PM PSYCH THERAPIST [facility] ([facility]) Triglycerides 103 0 - 149 mg/dL 04/22/2022 11:06 PM [facility] ([facility]) HDL Cholesterol 34(L) >39 mg/dL 11:06 PM [facility] (CET) VLDL Cholesterol Jorge Alberto 19 5 - 40 mg/dL 04/22/2022 11:06 PM [facility] ([facility]) LDL Chol Calc (NIH) 119(H) 0 - 99 mg/dL 04/22/2022 11:06 PM [facility] ([facility]) T. Chol/HDL Ratio 5.1(H) 0.0 - 5.0 ratio 04/22/2022 11:06 PM [facility] ([facility]) Comment: T. Chol/HDL Ratio Men Women 1/2 Avg.Risk 3.4 3.3 Avg.Risk 5.0 4.4 2X Avg.Risk 9.6 7.1 3X Avg.Risk 23.4 11.0 Blood BLOOD SPECIMEN / Unknown Venipuncture / Unknown 04/19/2022 11:58 AM PSYCH THERAPIST 04/19/2022 12:04 PM PSYCH THERAPIST Narrative [facility] ([facility]) - 04/22/2022 11:06 PM PSYCH THERAPIST Performed at: [address] [place] [id number] Wet Process Technician: Hank Gonzalez MD, Phone: [phone] us Di Thornton DO SEND OUTS Final Result [facility] ([facility]) [address] [place] [address], from Last 3 Months or Most Recently Relevant to Health Maintenance Additional Health Concerns Infection Onset Date Last Indicated Rule-Out Influenza 03/23/2023 03/23/2023 Insurance [address] SAKSHI [place]ACIN[place] [phone] [address] [address] [facility] [address] [place] YAO [address] [address] [place] [address] Care Teams Roll Over Press Operator Relationship Specialty Start Date End Date Di Thornton DO [address] [place] [address] [place] [id number] PCP - General Internal Medicine 11/15/14
--- OUTSIDE RECORDS SUMMARY | 2024-05-21 10:54 | XMS_ITS | Encounter Summary ---
Author Organization [facility] Address [address] [place] [address] Care Team Providers Care Sea Captain Name Role Phone Unavailable Primary Care Provider Unavailabl e Reason for Visit * Reason Onset Date Comments Eye Problem 05/20/2024 Encounter Details Date Type Department Care Team (Late st Contact Info) Description 05/20/2024 Nurse Triage Department of Family Medicine, [facility], in [place], [place] [address] [place] [address] Nivia Pickard RIsidroN. [address] [place] [address] Eye Problem Social History Tobacco Use Types Packs/Day Years Used Date Smoking Tobacco: Never Nutrition Answer Date Recorded Nutrition: EVOO Fat Source Unknown 05/29 Nutrition: Servings of Fruits/Vegetables per Day Not on file 05/29/2020 Dental Answer Date Recorded Dental: Regular Dentist Unknown 05/30/19 21 Sex and Gender Information Value Date Recorded Sex Assigned at Not on file Legal Sex Male 10:26 AM WEAVING TEACHER Gender Identity Not on file Sexual Orientation Not on file documented as of this encounter Miscellaneous Notes * Telephone Encounter - Nivia Pickard R.N. - 05/20/2024 2:33 PM WEAVING TEACHER Chief Complaint / Reason for Call Patient is a 59 y.o. male calling regarding Eye Problem. Assessment Concern: Reports starting yesterday has a flashing of light to periphery of right eye. Squiggly line floats back and forth Has had ocular migraines that last 20 minutes but this is different. Patientvery argumentative not wanting to answer triage questions but wanting to know that there is a specialist that would be in the ER for his eye. Denies pain, swelling Present for: 2 days The recommended disposition is Go to ED Now (or PCP Triage). Reason for Disposition [1] Blurred vision or visual changes AND [2] present now AND [3] sudden onset or new (e.g., minutes, hours, days) (Exception: Seeing floaters / black specks OR previously diagnosed migraine headacheswith same symptoms.) Protocols used: Vision Loss or [id number] Care Advice Patient/Caregiver understands and will follow care advice?: Yes, able to teach back Vision Loss or Jtuyvm-[id number]-IE Nurse Nivia Ho May 20, 2024 02:37 PM Care Advice ANOTHER ADULT SHOULD DRIVE: * It is better and safer if another adult drives instead of you. ING TEACHER documented in this encounter Plan of Treatment Not on file documented as of this encounter Visit Diagnoses Not on filedocumented in this encounter
--- OUTSIDE RECORDS SUMMARY | 2024-05-21 10:54 | XMS_ITS | Continuity of Care Document ---
Author Name [facility] Organization [facility] Care Team Providers Care Furniture Mover Name Role Phone [facility] Unavailable Unavailable Problems Combined list of problems from Department of [facility] and [facility] facilities. It does not include entries that were removed or entered in error. Problem Status Onset Date Problem Type Date of Resolution Comments Source Diagnosis: ICD-10-CM M54.59 Other low back pain Active Diagnosis [facility] Diagnosis: ICD-10-CM M54.51 Vertebrogenic low back pain Active Diagnosis [facility] Diagnosis: ICD-10-CM H49.11 Fourth [trochlear] nerve palsy, right eye Active Diagnosis [facility] Diagnosis: ICD-10-CM H50.21 Vertical strabismus, right eye Active Diagnosis [facility] Immunizations Combined list of available immunizations from the Department of [facility] and [facility] facilities. Immunization Series Date Given Administered By Site Reaction Lot Number CVX Code Drug Exhaust Machine Operator Status Comments Source TDAP 2022 115 complet ed [facility] Encounters Combined list of: 1) Encounters from [facility] facilities going backup to the last 18 months, not all [place] inpatient encounters are included; 2) Encounters from the Department of [facility] facilities going backup to 280 months. Location Location Details Encounter Type Encounter Number Reason For Visit Attending Provider ADM Date DC Date Status Disposition Source [facility] Outpatient Encounter [id number] 06/04 [facility]P NEW MOD 45 MIN [id number] Diagnos is: ICD-10- CM H50.21 Vertica l strabis mus, right eye LUCHO GUERIN 06/18 [facility] OFFICE O/P NEW MOD 45 MIN [id number] Diagnos is: ICD-10- CM H49.11 Fourth [trochl ear] nerve palsy, right eye PATT LAZO 07/09 [facility] Out[facility] Encounter [id number] 07/24 [facility] Encounter [id number] GANESH HARPER 08/02 [facility] Encounter [id number] SA RA Katelyn PERKINS 08/02 [facility] Encounter [id number] 08/04 [facility] Encounter [id number] KRYSTA HEARN 08/14 [facility]counter [id number] 08/14 [facility] Encounter [id number] 08/21 [facility]counter [id number] 09/18 [facility] [id number] 09/25 [facility]counter [id number] 10/09 [facility] Encounter [id number] 10/21 [facility] [id number] 10/30 [facility] Encounter [id number] 10/30 [facility]counter [id number] 10/30 [facility] Encounter [id number] 11/02 [place] [place] [facility] OFF/OP CONSLT[place] 55 [id number] Diagnos is: ICD-10- CM M54.51 Vertebr ogenic low back pain GAMALIEL NAJERA 12/02 [facility] Outpatient Encounter [id number] 05/03 [facility] SELF CARE MNGMENT TRAINING [id number] Diagnos is: ICD-10- CM M54.59 Other low back pain RASHID RAYGOZA 05/06 [facility]
--- OUTSIDE RECORDS SUMMARY | 2024-05-21 10:54 | XMS_ITS | Encounter Summary ---
Author Name [facility] Organization [facility] ([place]) Address [address] [place] [address] Support Name Relationship Address Phone PALMER GARNICAHA Next of Kin Unknown CARLY GARNICA Emergency Contact Unknown [phone] Insurance Providers: All historical and current Section [...] [place] PREFERRED PROVIDER ORGANIZAT ION (PPO) [employer] Jun 30, 2015 [id number] [phone] LUCHO BARBER PATIENT [place] PREFERRED PROVIDER ORGANIZAT ION (PPO) [employer] Jun 30, 2015 [id number] [phone] LUCHO BARBER PATIENT [employer] ([employer]) PRESCRIPT ION RX PLAN Jun 30, 2015 [facility] [id number] LUCHO BARBER PATIENT Selected Encounter This section includes the information on record at [place] for the Encounter. Date/Time Encounter Type Encounter Description Reason Pro vider Source May 03, 2024 03:41 PM Outpatient Encounter PHYSICAL THERAPY IHE Encounter Template Text not used by [place] Plan of Treatment: Future Appointments (+ 6 months) and Future Tests (+/- 45 days) The Plan of Treatment section includes future care activities for the patient from all VA treatmentfacilities. This section includes future appointments and future orders which are active, pending or scheduled. Future Appointments This section includes appointments that were scheduled to occur 6 months from the date of the Encounter, up to a maximum of 20 appointments. The data comes from all [place] treatment facilities. Appointment Date/Time Appointment Type Appointme nt Facility Name 2024 10:00 AM AMBULATORY - [facility] Encounter Notes: All associated encounter notes This section contains the clinical notes associated to the Encounter. Date/Time Encounter Note(s) Provider Source May 05, 2024 10:05 AM ADDENDUM: LOCAL TITLE: Addendum STANDARD TITLE: ADDENDUM DATE OF NOTE: MAY 05, 2024@10:05:29 ENTRY DATE: MAY 05, 2024@10:05:29 AUTHOR: SUSHILA AGUIRRE COSIGNER: URGENCY: STATUS: COMPLETED Wait time above was calculated in error. Pt is within drive time (50 min) to the [facility]. There is availability within 3 wks of the request. Requesting assistance in contacting patient to offer VA PT appointment. /es/ SUSHILA AGUIRRE DPT PHYSICAL THERAPIST Signed: 05/05/2024 10:07 Receipt Acknowledged By: 05/10/2024 12:28 /es/ MARCO ANTONIO LOUISE [address] NICOLE Rice Milling Supervisor Physical Medicine and Rehab 05/05/2024 10:24 /es/ ELEUTERIO MARTINEZ Clinic Operations Leaf Stamper 05/12/2024 11:07 /es/ ISAURA DAVIDSON Clinical Operations Leaf Stamper 05/05/2024 10:33 /es/ MEEK MCDERMOTT CLINICAL OPERATIONS JUNIOR ACCOUNT EXECUTIVE ====== --- Original Document --- 05/03/24 APPOINTMENT SCHEDULING NOTE: Patient Self-Referral Direct Scheduling (PSDS) Patient Self-Referral Direct Scheduling (PSDS): Physical Therapy Patient requesting Physical Therapy for: SPINAL STENOSIS, DEGENERATIVE DISCS Patient indicated date: May Reason for Community Care request: Wait time - No available appointments within required timeframe. No Available Appointments ([place]). [facility]- 06/10/2024 Adding Physical Therapy Community System Administration Advisor as additional signer to this note to faciliate request. /rehan/ MANUEL SINGH ADVANCED SALES HOST Signed: 05/03/2024 15:43 Receipt Acknowledged By: 05/04/2024 07:16 /rehan/ JESUS PATEL DPT PHYSICAL THERAPIST 2024 11:40 /es/ TINY SUAREZ DPT, OCS PHYSICAL THERAPIST 05/05/2024 ADDENDUM STATUS: COMPLETED [employer] Senior Officer will have patient contacted and offered to schedule Physical Therapy PSDS request per usual process. /es/ ELEUTERIO MARTINEZ Clinic Operations Leaf Stamper Signed: 05/05/2024 10:24 05/05/2024 ADDENDUM STATUS: COMPLETED Contact attempt made to : Telephone left voicemail for to contact us at [phone]. Please have speak with senior mortgage underwriter in regards to this request upon their return call. /rehan/ MANUEL SINGH ADVANCED SALES HOST Signed: 05/05/2024 10:58 SUSHILA AGUIRRE [facility] May 03, 2024 03:41 PM REPORT OF CONTACT: LOCAL TITLE: APPOINTMENT SCHEDULING NOTE STANDARD TITLE: REPORT OF CONTACT DATE OF NOTE: MAY 03, 2024@15:41 ENTRY DATE: MAY 03, 2024@15:41:43 AUTHOR: MANUEL KHAN EXP COSIGNER: URGENCY: STATUS: COMPLETED APPOINTMENT SCHEDULING NOTE Has ADDENDA Patient Self-Referral Direct Scheduling (PSDS) Patient Self-Referral Direct Scheduling (PSDS): Physical Therapy Patient requesting Physical Therapy for: SPINAL STENOSIS, DEGENERATIVE DISCS Patient indicated date: May Reason for Community Care request: Wait time - No available appointments within required timeframe. No Available Appointments ([place]). [facility]- 06/10/2024 Adding Physical Therapy Community System Administration Advisor as additional signer to this note to faciliate request. /rehan/ MANUEL SINGH ADVANCED SALES HOST Signed: 05/03/2024 15:43 Receipt Acknowledged By: 05/04/2024 07:16 /rehan/ JESUS PATEL DPT PHYSICAL THERAPIST 2024 11:40 /rehan/ TINY SUAREZ DPT, OCS PHYSICAL THERAPIST 05/05/2024 ADDENDUM STATUS: COMPLETED Wait time above was calculated in error. Pt is within drive time (50 min) to the [facility]. There is availability within 3 wks of the request. Requesting assistance in contacting patient to offer VA PT appointment. /es/ SUSHILA AGUIRRE DPT PHYSICAL THERAPIST Signed: 05/05/2024 10:07 Receipt Acknowledged By: * AWAITING SIGNATURE * MARCO ANTONIO [place] 05/05/2024 10:24 /es/ ELEUTERIO MARTINEZ [facility] Operations Leaf Stamper * AWAITING SIGNATURE * ISAURA DAVIDSON 05/05/2024 10:33 /es/ MEEK MCDERMOTT CLINICAL OPERATIONS JUNIOR ACCOUNT EXECUTIVE 05/05/2024 ADDENDUM STATUS: COMPLETED [employer] Senior Officer will have patient contacted and offered to schedule Physical Therapy PSDS request per usual process. /es/ ELEUTERIO MARTINEZ [facility] Operations Leaf Stamper Signed: 05/05/2024 10:24 05/05/2024 ADDENDUM STATUS: COMPLETED Contact attempt made to : Telephone left voicemail for to contact us at [phone]. Please have speak with senior mortgage underwriter in regards to this request upon their return call. /es/ MANUEL SINGH ADVANCED SALES HOST Signed: 05/05/2024 10:58 MANUEL KHAN [facility]
== END 2024-05-21 10:59 | disposition home or self-care (01) ==
LOC: ED 10:53
PROVIDERS: Emergency Provider Internal Medicine
DX: H53.8 Other visual disturbances (principal)
CPT/HCPCS: 99283